=== PATIENT | female | born 1930 | race Caucasian/White ===

== ENCOUNTER 2017-12-22 12:48 | Observation (INO) | payer MEDICARE, OTHER ==
[2017-12-22 12:48] VITALS: BMI 25.7
[2017-12-22] MEDS ORDERED: Sodium Chloride 0.9% 1,000 ML IV STA (13:11)
--- NOTE | 2017-12-22 13:17 | ED PDOC ---
Syncope/Near Syncope/Dizziness Time Seen by Provider: 12/22/17 12:55 Chief Complaint (Nursing): Syncope Chief Complaint (Provider): Syncope History Per: Patient History/Exam Limitations: no limitations Onset/Duration Of Symptoms: Days (today) Current Symptoms Are (Timing): Gone Now Additional Complaint(s): Pt. was doing well today and went to [employer]. There she was feeling hot (had a jacket and multiple layers on) and then had a syncope episode. Did not respond for [address] Fitzgerald (pt. nephew). Pt. then woke up and felt fine. At no time did she have chest pain, dyspnea, weakness, headaches, dizziness, chest pain, abd pain, nausea, vomit, numbness, tingles. No shaking observed. Pt. currently back to baseline and feels fine with no symptoms. Had breakfast today. NIHSS Stroke Scale - Date/Time Evaluation Performed Date Performed: 12/22/17 Time Performed: 13:13 When Was NIHSS Performed: Baseline - How Severe is the Stroke Level of Consciousness: 0=Alert LOC to Questions: 0=Both comments correct LOC to commands: 0=Obeys both correctly Best Gaze: 0=Normal Visual: 0=No visual loss Facial: 0=Normal Motor Arm - Left: 0=No drift Motor Arm - Right: 0=No drift Motor Leg - Left: 0=No drift Motor Leg - Right: 0=No drift Limb Ataxia: 0=Absent Sensory: 0=Normal Best Language: 0=No aphasia Dysarthia: 0=Normal articulation Extinction & Inattention (Neglect): 0=Normal, no object Score: 0 Past Medical History Reviewed: Historical Data, Nursing Documentation, Vital Signs Vital Signs: Last Vital Signs Temp 97.1 F L 12/22/17 12:49 Pulse 69 12/22/17 12:49 Resp 21 12/22/17 12:49 BP 137/55 L 12/22/17 12:49 Pulse Ox 100 12/22/17 12:49 - Medical History PMH: Cardia Arrhythmia, HTN, Hypercholesterolemia, Hyperlipidemia, Kidney Stones , Osteoporosis Denies: CHF, Chronic Kidney Disease - Surgical History Surgical History: Pacemaker - Family History Family History: States: Unknown Family Hx - Living Arrangements Living Arrangements: With Family - Social History Current smoker - smoking cessation education provided: No Alcohol: None Drugs: Denies - Home Medications Home Medications: Ambulatory Orders Medication Instructions Recorded Aspirin [Aspirin EC] 81 mg PO DAILY #0 tablet. 02/14/16 Isosorbide Mononitrate [Imdur] 60 mg PO DAILY #0 tab 02/14/16 Losartan [Cozaar] 100 mg PO DAILY #0 tab 02/14/16 Metoprolol Tartrate [Lopressor] 25 mg PO DAILY #0 tab 02/14/16 Ergocalciferol (Vitamin D2) 50,000 unit PO FR 03/09/16 [Vitamin D2] Lansoprazole [Prevacid] 30 mg PO DAILY PRN 03/09/16 Meclizine [Antivert] 12.5 mg PO DAILY PRN 03/09/16 Simvastatin 20 mg PO HS 03/09/16 - Allergies Allergies/Adverse Reactions: Allergies Allergy/AdvReac Type Severity Reaction Status Date / Time Sulfa (Sulfonamide Allergy RASH Verified 03/09/16 11:42 Antibiotics) Review of Systems ROS Statement: Except As Marked, All Systems Reviewed And Found Negative Neurological: Positive for: Other (syncope) Physical Exam - Reviewed Nursing Documentation Reviewed: Yes Vital Signs Reviewed: Yes - Physical Exam Appears: Positive for: Well, Non-toxic, No Acute Distress Head Exam: Positive for: ATRAUMATIC, NORMAL INSPECTION, NORMOCEPHALIC Skin: Positive for: Normal Color, Warm, DRY Eye Exam: Positive for: EOMI, Normal appearance, PERRL ENT: Positive for: Normal ENT Inspection Neck: Positive for: Normal, Painless ROM Cardiovascular/Chest: Positive for: Regular Rate, Rhythm Respiratory: Positive for: CNT, Normal Breath Sounds Gastrointestinal/Abdominal: Positive for: Normal Exam, Soft. Negative for: Tenderness Back: Positive for: Normal Inspection. Negative for: L CVA Tenderness, R CVA Tenderness Extremity: Positive for: Normal ROM. Negative for: Tenderness, Pedal Edema Neurologic/Psych: Positive for: Alert, monorail operator II-XII, Oriented. Negative for: Motor/Sensory Deficits, Aphasia, Facial Droop - Laboratory Results Result Diagrams: 12/22/17 13:40 12/22/17 13:40 Interpretation Of Abn Labs: 32/1.6 - ECG ECG: Positive for: Interpreted By Me, Viewed By Me ECG Rhythm: Positive for: Venticular Paced (on demand) O2 Sat by Pulse Oximetry: 100 Pulse Ox Interpretation: Normal - Radiology X-Ray: Interpreted by Me, Viewed By Me X-Ray Interpretation: No Acute Disease - CT Scan/US ct Other Rad Studies (CT/US): Read By Radiologist Other Rad Interpretation: no acute - Progress ED Course And Treament: 1542: Stable. Has no complaints currently. Considering pt. age, risk factors , and bun/cr findings will need obs. 1607: Spoke with Dr. Davila. Will admit tele. Disposition - Clinical Impression Clinical Impression: Syncope, Dehydration, Renal insufficiency - Patient ED Disposition Is Patient to be Admitted: Yes Counseled Patient/Family Regarding: Studies Performed, Diagnosis - Disposition Disposition Time: 16:11 Condition: FAIR - Pt Status Changed To: Hospital Disposition Of: Observation - POA Present On Arrival: None rTPA Inclusion/Exclusion - Refusal of Treatment Patient Refused Treatment: No - Inclusion Criteria for Altepase Patient is 18 years or Older: Yes Clinical DX Ischemic Stroke Cause Neurological Deficit: No Time of Onset Established Less Than 270 Mins Before TX Begin: No Risk/Benefit Discussed With Patient/Family Member Present: No
[2017-12-22 13:49] LABS: BASO # 0.1 K/uL (0.0-0.2); BASO % 0.6 % (0.0-2.0); EOS # 0.1 K/uL (0.0-0.7); EOS % 1.1 % (0.0-4.0); HEMOGLOBIN 13.2 g/dL (12.0-16.0); LYMPH # 1.7 K/uL (1.0-4.3); LYMPH % 18.4 % (20.0-40.0); MEAN CELL VOLUME 87.1 fl (81.0-99.0); MEAN CORPUSCULAR HEMOGLOBIN 28.7 pg (27.0-31.0); MEAN PLATELET VOLUME 8.6 fl (7.2-11.7); MONO # 0.7 K/uL (0.0-0.8); MONO % 7.2 % (0.0-10.0); NEUT # 6.9 K/uL (1.8-7.0); NEUT % 72.7 % (50.0-75.0); NRBC % 0.1 % (0.0-0.0); RBC 4.6 Mil/uL (3.80-5.20); WHITE BLOOD COUNT 9.5 K/uL (4.8-10.8)
[2017-12-22 14:02] LABS: ALB/GLOB RATIO 1.2 (1.0-2.1); ALBUMIN 4.1 g/dL (3.5-5.0); ALT/SGPT 44 U/L (9-52); AST/SGOT 30 U/L (14-36); BLOOD UREA NITROGEN 32 mg/dl (7-17); CALCIUM 9.8 mg/dL (8.4-10.2); GFR AFRICAN-AMERICAN 37; GFR NON-AFRICAN AMERICAN 30
[2017-12-22 14:06] LABS: INR 1.1 (0.9-1.2); PARTIAL THROMBOPLASTIN TIME 21.2 Seconds (25.6-37.1); PROTHROMBIN TIME 11.7 Seconds (9.8-13.1)
--- NOTE | 2017-12-22 14:35 | CT ---
PROCEDURE: CT HEAD WITHOUT CONTRAST. HISTORY: headache COMPARISON: Noncontrast head CT 03/09/2016. TECHNIQUE: Axial computed tomography images were obtained through the head/brain without intravenous contrast. Radiation dose: Total exam DLP = 670.29 mGy-cm. This CT exam was performed using one or more of the following dose reduction techniques: Automated exposure control, adjustment of the mA and/or kV according to patient size, and/or use of iterative reconstruction technique. FINDINGS: HEMORRHAGE: No intracranial hemorrhage. BRAIN: Good corticomedullary differentiation is seen. Proportional, diffuse expansion of the ventriculosulcal and cisternal spaces is appreciated with white matter lucency compatible with diffuse cerebral atrophy and chronic microangiopathy. No suspicious extra-axial fluid collection is identified and the midline brain anatomy appears grossly nonfocal as imaged. There is no mass effect throughout. VENTRICLES: Unremarkable. No hydrocephalus. CALVARIUM: Unremarkable. PARANASAL SINUSES: Unremarkable as visualized. No significant inflammatory changes. MASTOID AIR CELLS: Unremarkable as visualized. No inflammatory changes. OTHER FINDINGS: None. IMPRESSION: Stable age related neuro degenerative changes, age appropriate. No suspicious interval findings including hemorrhage, edema or mass effect.
--- NOTE | 2017-12-22 16:40 | CP.PCM.HP ---
History of Present Illness - History of Present Illness History of Present Illness: Chief Complaint: "passed out in mu-ism" HPI: 87 y/o lady with Hx of Sick Sinus Syndrome s/p Pacemaker, HTN, Hyperlipidemia , CKD Stage II and Alzheimer's Dementia, was brought in after a syncopal episode. The patient was sitted in [facility] when she was suddenly noticed to be unresponsive for about 2-3 minutes. She then woke up and was alert and answered all her nephews questions appropriately. No seizures, no incontinence , however she was noted to be sweating. She denies any chest pain, no SOB, no fever, no headache, no dizziness, no abdominal pain. She states that she had eaten her breakfast prior to going to [facility]. Of note was that patient was wearing a heavy winter coat to mu-ism and also had 2 winter warmers under her pants. Patient was seen by her Collection Systems Modeler - Dr Luna 1 month ago for follow up and all work ups done were fine. Lives alone , has a Home Health Aide 5x/week 4 hours per day PMD : DR Kovacs Cardio: Dr Luna Nephro: Dr Rudolph Surrogate DEcision maker - nephew Dr Ra Fitzgerald ( OB) Meds: Norvasc Namenda Aricept ASA Calcitriol Vit D Present on Admission - Present on Admission Any Indicators Present on Admission: No Review of Systems - Review of Systems All systems: reviewed and no additional remarkable complaints except - Constitutional Constitutional: absent: Chills, Fever, Headache, Lethargy, Weight Loss, Weakness - EENT Eyes: absent: Change in Vision Nose/Mouth/Throat: absent: Nasal Congestion, Nasal Discharge - Cardiovascular Cardiovascular: absent: Chest Pain, Diaphoresis, Dyspnea, Dyspnea on Exertion, Edema - Respiratory Respiratory: absent: Cough, Dyspnea, Dyspnea on Exertion - Gastrointestinal Gastrointestinal: absent: Abdominal Pain, Diarrhea, Heartburn, Vomiting - Genitourinary Genitourinary: absent: Difficulty Urinating, Dysuria, Nocturia - Menstruation Menstruation: S/P Hysterectomy - Musculoskeletal Musculoskeletal: absent: Back Pain, Muscle Weakness - Integumentary Integumentary: absent: Lesions, Skin Ulcer, Sores - Neurological Neurological: Memory Loss, Syncope. absent: Confusion, Focal Weakness, Headaches, Vertigo, Weakness - Psychiatric Psychiatric: absent: Abnormal Sleep Pattern, Anxiety, Confusion, Depression - Endocrine Endocrine: absent: Polydipsia, Polyphagia, Polyuria - Hematologic/Lymphatic Hematologic: absent: Easy Bleeding, Easy Bruising Past Patient History - Infectious Disease Hx of Infectious Diseases: None - Tetanus Immunizations Tetanus Immunization: Unknown - Past Medical History & Family History Past Medical History?: Yes Past Family History: Reviewed and not pertinent - Past Social History Smoking Status: Never Smoked Chewing Tobacco Use: No Cigar Use: No Alcohol: None Drugs: Denies Home Situation {Lives}: Alone Domestic Violence: Negative - CARDIAC Hx Cardia Arrhythmia: Yes Hx Congestive Heart Failure: No Hx Hypercholesterolemia: Yes Hx Hypertension: Yes Hx Pacemaker: Yes - PULMONARY Hx Respiratory Disorders: No - NEUROLOGICAL Hx Dementia: Yes - HEENT Hx HEENT Problems: No - RENAL Hx Chronic Kidney Disease: No Hx Kidney Stones: Yes - ENDOCRINE/METABOLIC Hx Endocrine Disorders: No - HEMATOLOGICAL/ONCOLOGICAL Hx Blood Disorders: No - INTEGUMENTARY Hx Dermatological Problems: No - MUSCULOSKELETAL/RHEUMATOLOGICAL Hx Osteoporosis: Yes - GASTROINTESTINAL Hx Gastrointestinal Disorders: No - GENITOURINARY/GYNECOLOGICAL Hx Genitourinary Disorders: No - PSYCHIATRIC Hx Psychophysiologic Disorder: No Hx Substance Use: No - SURGICAL HISTORY Hx Surgeries: Yes Hx Hysterectomy: Yes Other/Comment: Hx Hemorroidectomy. Pacemaker placement - ANESTHESIA Hx Anesthesia: Yes Hx Anesthesia Reactions: No Hx Malignant Hyperthermia: No Meds Allergies/Adverse Reactions: Allergies Allergy/AdvReac Type Severity Reaction Status Date / Time Sulfa (Sulfonamide Allergy RASH Verified 03/09/16 11:42 Antibiotics) Physical Exam - Constitutional Appears: Well - Head Exam Head Exam: ATRAUMATIC, NORMAL INSPECTION, NORMOCEPHALIC - Eye Exam Eye Exam: EOMI, Normal appearance, PERRL Pupil Exam: NORMAL ACCOMODATION - ENT Exam ENT Exam: Mucous Membranes Moist, Normal External Ear Exam - Neck Exam Neck exam: Positive for: Full Rom. Negative for: Meningismus - Respiratory Exam Respiratory Exam: NORMAL BREATHING PATTERN. absent: Respiratory Distress - Cardiovascular Exam Cardiovascular Exam: REGULAR RHYTHM, +S1, +S2 Additional comments: left chest pacemaker - GI/Abdominal Exam GI & Abdominal Exam: Normal Bowel Sounds, Soft. absent: Tenderness - Extremities Exam Extremities exam: Positive for: full ROM, normal capillary refill, pedal pulses present. Negative for: calf tenderness, pedal edema - Back Exam Back exam: FULL ROM. absent: CVA tenderness (L), CVA tenderness (R) - Neurological Exam Neurological exam: Alert, CN II-XII Intact, Oriented x3, Reflexes Normal - Psychiatric Exam Psychiatric exam: Normal Affect, Normal Mood - Skin Skin Exam: Dry, Normal Color, Warm Results - Vital Signs Recent Vital Signs: Last Vital Signs Temp 98.1 F 12/22/17 15:36 Pulse 67 12/22/17 15:36 Resp 15 12/22/17 15:36 BP 119/70 12/22/17 15:36 Pulse Ox 100 12/22/17 16:11 - Labs Result Diagrams: 12/22/17 13:40 12/22/17 13:40 Labs: Laboratory Results - last 24 hr 12/22/17 12/22/17 12/22/17 13:21 13:40 13:40 WBC 9.5 RBC 4.60 Hgb 13.2 Hct 40.0 MCV 87.1 D MCH 28.7 MCHC 33.0 RDW 14.0 Plt Count 252 MPV 8.6 Neut % (Auto) 72.7 Lymph % (Auto) 18.4 L [place] % (Auto) 7.2 Eos % (Auto) 1.1 Baso % (Auto) 0.6 Neut # (Auto) 6.9 Lymph # (Auto) 1.7 [place] # (Auto) 0.7 Eos # (Auto) 0.1 Baso # (Auto) 0.1 PT INR APTT Sodium 142 Potassium 4.3 Chloride 106 Carbon Dioxide 22 Anion Gap 18 BUN 32 H Creatinine 1.6 H Est GFR ( Amer) 37 Est GFR (Non-Af Amer) 30 POC Glucose (mg/dL) 137 H Random Glucose 135 H Calcium 9.8 Total Bilirubin 0.5 AST 30 ALT 44 Alkaline Phosphatase 52 Troponin I < 0.0120 Total Protein 7.6 Albumin 4.1 Globulin 3.5 Albumin/Globulin Ratio 1.2 12/22/17 13:40 WBC RBC Hgb Hct MCV MCH MCHC RDW Plt Count MPV Neut % (Auto) Lymph % (Auto) [place] % (Auto) Eos % (Auto) Baso % (Auto) Neut # (Auto) Lymph # (Auto) [place] # (Auto) Eos # (Auto) Baso # (Auto) PT 11.7 INR 1.1 APTT 21.2 L Sodium Potassium Chloride Carbon Dioxide Anion Gap BUN Creatinine Est GFR ( Amer) Est GFR (Non-Af Amer) POC Glucose (mg/dL) Random Glucose Calcium Total Bilirubin AST ALT Alkaline Phosphatase Troponin I Total Protein Albumin Globulin Albumin/Globulin Ratio - EKG Data EKG Interpreted by: Myself EKG shows normal: Sinus rhythm Rate: Normal - EKG Data EKG comments: Paced rhythm, PVCs - Imaging and Cardiology CT scan - head Status: Image reviewed by me, Report reviewed by me Additional comment: negative acute change Chest x-ray Status: Image reviewed by me Additional comment: negative Assessment & Plan (1) Syncope Status: Acute (2) Dehydration Status: Acute (3) Acute kidney injury superimposed on chronic kidney disease Status: Acute (4) HTN (hypertension) Status: Chronic (5) Dementia Status: Chronic (6) Pacemaker Status: Chronic (7) DVT prophylaxis Status: Acute - Assessment and Plan (Free Text) Assessment: 87 y/o lady with hx of SS s/p Pacemaker, HTN, HYperlipidenia, Dementia, CKD , was brought in after a Syncopal episode. Pt was in [facility] wearing a heavy winter coat and had layered clothing when she was suddenly observed to have passed out. She regained consciousness after 2-3 minutes and was asymptomatic. (1) Syncope Status: Acute prob sec to Dehydration or Vasovagal r/o Cardiac etiology EKG: Paced rhythm, PVCs Trop x 1 negative CXR : neg CT of head : neg Will observe pt in Telemetry Cardio - Dr Luna consulted - case discussed , pt had recent office visit 1 month ago - ( per Dr Bauman - no need to do ECHO nor Carotid Sono) Serial Troponi cont ASA (2) Dehydration Status: Acute IVF hydration , gentle (3) Acute kidney injury superimposed on chronic kidney disease stage II Status: Acute IVF hydration Pt sees Dr Rudolph as outpt (4) HTN (hypertension) Status: Chronic cont Norvasc monitor BP (5) Dementia Status: Chronic cont namenda (6) Hx of SSS s/p Pacemaker Status: Chronic (7) DVT prophylaxis Status: Acute Lovenox Decision To Admit - Pt Status Changed To: Hospital Disposition Of: Observation - . Bed Request Type: Telemetry Admitting Physician: Mary Rand
--- NOTE | 2017-12-22 16:43 | RAD ---
HISTORY: syncope COMPARISON: Chest radiographs 02/11/2016 FINDINGS: LUNGS: No active pulmonary disease. Improved inspiratory volume noted. PLEURA: No significant pleural effusion identified, no pneumothorax apparent. CARDIOVASCULAR: Normal. Permanent cardiac pacemaker again evident. OSSEOUS STRUCTURES: No significant abnormalities. VISUALIZED UPPER ABDOMEN: Normal. OTHER FINDINGS: None. IMPRESSION: No interval acute cardiopulmonary disease appreciated. Permanent pacemaker reiterated.
[2017-12-22] MEDS: Sodium Chloride 0.9% 1,000 ML IV SCH (17:03)
[2017-12-22] MEDS ORDERED: Pneumococcal 23-Valent Vaccine IM ONE (18:22)
[2017-12-23 05:44] LABS: HEMOGLOBIN 11.7 g/dL (12.0-16.0); MEAN CELL VOLUME 86.8 fl (81.0-99.0); MEAN CORPUSCULAR HEMOGLOBIN 28.7 pg (27.0-31.0); RBC 4.09 Mil/uL (3.80-5.20); WHITE BLOOD COUNT 8.9 K/uL (4.8-10.8)
[2017-12-23 05:56] LABS: BLOOD UREA NITROGEN 28 mg/dl (7-17); CALCIUM 8.9 mg/dL (8.4-10.2); GFR AFRICAN-AMERICAN 51; GFR NON-AFRICAN AMERICAN 42
[2017-12-23 06:19] LABS: T3 0.785 nmol/L (1.49-2.60)
[2017-12-23 07:58] VITALS: RESP 18
[2017-12-23 08:03] LABS: SQUAMOUS EPITHIAL < 1 /hpf (0-5); URINE BACTERIA OCC (<OCC); URINE BILIRUBIN NEGATIVE (NEGATIVE); URINE BLOOD NEGATIVE (NEGATIVE); URINE CLARITY CLOUDY (Clear); URINE COLOR YELLOW (YELLOW); URINE GLUCOSE (UA) NEG (Normal); URINE LEUKOCYTE ESTERASE LARGE Leu/uL (Negative); URINE PROTEIN NEGATIVE (NEGATIVE); URINE UROBILINOGEN 0.2-1.0 mg/dL (0.2-1.0)
--- NOTE | 2017-12-23 08:24 | CARD ---
APPROVED REPORT EKG Measurement Heart [id number] <Conclusion> Accelerated Junctional rhythm with frequent ventricular-paced complexes and premature supraventricular complexes ST & T wave abnormality, consider inferior ischemia ST & T wave abnormality, consider anterolateral ischemia Abnormal ECG
[2017-12-23] MEDS ORDERED: Enoxaparin 30 mg Syringe SC SCH (09:00)
[2017-12-23] MEDS: Sodium Chloride 0.9% 1,000 ML IV SCH (09:25)
--- NOTE | 2017-12-23 13:20 | CP.PCM.DIS ---
Provider - Provider Date of Admission: 12/22/17 16:08 Attending physician: Ryder Davila MD Primary care physician: Dr Kovacs Consults: Cardio: Dr Luna Time Spent in preparation of Discharge (in minutes): 35 Diagnosis - Discharge Diagnosis (1) Syncope Status: Acute (2) Dehydration Status: Acute (3) Acute kidney injury superimposed on chronic kidney disease Status: Acute (4) HTN (hypertension) Status: Chronic (5) Dementia Status: Chronic (6) Pacemaker Status: Chronic (7) DVT prophylaxis Status: Acute (8) UTI (urinary tract infection) Status: Acute Hospital Course - Lab Results Lab Results: Most Recent Lab Values WBC 8.9 K/uL (4.8-10.8) 12/23/17 04:20 RBC 4.09 Mil/uL (3.80-5.20) 12/23/17 04:20 Hgb 11.7 g/dL (12.0-16.0) L 12/23/17 04:20 Hct 35.5 % (34.0-47.0) 12/23/17 04:20 MCV 86.8 fl (81.0-99.0) 12/23/17 04:20 MCH 28.7 pg (27.0-31.0) 12/23/17 04:20 MCHC 33.0 g/dL (33.0-37.0) 12/23/17 04:20 RDW 14.0 % (11.5-14.5) 12/23/17 04:20 Plt Count 207 K/uL (130-400) 12/23/17 04:20 MPV 8.6 fl (7.2-11.7) 12/22/17 13:40 Neut % (Auto) 72.7 % (50.0-75.0) 12/22/17 13:40 Lymph % (Auto) 18.4 % (20.0-40.0) L 12/22/17 13:40 [place] % (Auto) 7.2 % (0.0-10.0) 12/22/17 13:40 Eos % (Auto) 1.1 % (0.0-4.0) 12/22/17 13:40 Baso % (Auto) 0.6 % (0.0-2.0) 12/22/17 13:40 Neut # (Auto) 6.9 K/uL (1.8-7.0) 12/22/17 13:40 Lymph # (Auto) 1.7 K/uL (1.0-4.3) 12/22/17 13:40 [place] # (Auto) 0.7 K/uL (0.0-0.8) 12/22/17 13:40 Eos # (Auto) 0.1 K/uL (0.0-0.7) 12/22/17 13:40 Baso # (Auto) 0.1 K/uL (0.0-0.2) 12/22/17 13:40 PT 11.7 Seconds (9.8-13.1) 12/22/17 13:40 INR 1.1 (0.9-1.2) 12/22/17 13:40 APTT 21.2 Seconds (25.6-37.1) L 12/22/17 13:40 Sodium 141 mmol/l (132-148) 12/23/17 04:20 Potassium 4.1 MMOL/L (3.6-5.0) 12/23/17 04:20 Chloride 109 mmol/L (98-107) H 12/23/17 04:20 Carbon Dioxide 25 mmol/L (22-30) 12/23/17 04:20 Anion Gap 11 (10-20) 12/23/17 04:20 BUN 28 mg/dl (7-17) H 12/23/17 04:20 Creatinine 1.2 mg/dl (0.7-1.2) 12/23/17 04:20 Est GFR ( Amer) 51 12/23/17 04:20 Est GFR (Non-Af Amer) 42 12/23/17 04:20 POC Glucose (mg/dL) 137 mg/dL (65-110) H 12/22/17 13:21 Random Glucose 95 mg/dL (65-105) 12/23/17 04:20 Calcium 8.9 mg/dL (8.4-10.2) 12/23/17 04:20 Total Bilirubin 0.5 mg/dl (0.2-1.3) 12/22/17 13:40 AST 30 U/L (14-36) 12/22/17 13:40 ALT 44 U/L (9-52) 12/22/17 13:40 Alkaline Phosphatase 52 U/L (38-126) 12/22/17 13:40 Troponin I < 0.0120 ng/mL (0.00-0.120) 12/23/17 04:20 Total Protein 7.6 G/DL (6.3-8.2) 12/22/17 13:40 Albumin 4.1 g/dL (3.5-5.0) 12/22/17 13:40 Globulin 3.5 gm/dL (2.2-3.9) 12/22/17 13:40 Albumin/Globulin Ratio 1.2 (1.0-2.1) 12/22/17 13:40 Vitamin B12 619 pg/mL (239-931) 12/23/17 04:20 Thyroxine (T4) 5.40 ug/dl (5.5-11.0) L 12/23/17 04:20 Total T3 0.785 nmol/L (1.49-2.60) L 12/23/17 04:20 TSH 3rd Generation 1.26 mIU/ML (0.46-4.68) 12/23/17 04:20 Urine Color Yellow (YELLOW) 12/23/17 07:46 Urine Clarity Cloudy (Clear) 12/23/17 07:46 Urine pH 6.0 (5.0-8.0) 12/23/17 07:46 Ur Specific [place] 1.015 (1.003-1.030) 12/23/17 07:46 Urine Protein Negative mg/dL (NEGATIVE) 12/23/17 07:46 Urine Glucose (UA) Neg mg/dL (Normal) 12/23/17 07:46 Urine Ketones Negative mg/dL (NEGATIVE) 12/23/17 07:46 Urine Blood Negative (NEGATIVE) 12/23/17 07:46 Urine Nitrate Negative (NEGATIVE) 12/23/17 07:46 Urine Bilirubin Negative (NEGATIVE) 12/23/17 07:46 Urine Urobilinogen 0.2-1.0 mg/dL (0.2-1.0) 12/23/17 07:46 Ur Leukocyte Esterase Large Mónica/uL (Negative) 12/23/17 07:46 Urine Microscopic WBC 182 /hpf (0-5) H 12/23/17 07:46 Ur Squamous Epith Cells < 1 /hpf (0-5) 12/23/17 07:46 Urine Bacteria Occ (<OCC) H 12/23/17 07:46 - Hospital Course Hospital Course: 87 y/o lady with hx of SSS s/p Pacemaker, HTN, HYperlipidenia, Dementia, CKD , was brought in after a Syncopal episode. Pt was in [facility] wearing a heavy winter coat and had layered clothing when she was suddenly observed to have passed out. She regained consciousness after 2-3 minutes and was asymptomatic. (1) Syncope Status: Acute prob sec to Dehydration or Vasovagal observed pt in Telemetry- no abn rhythm EKG: Paced rhythm, PVCs serial EKG : no change Trop x 3 negative CXR : neg CT of head : neg Cardio - Dr Luna consulted - case discussed , pt had recent office visit 1 month ago - ( per Dr Luna - no need to do ECHO nor Carotid Sono)- cleared pt for discharge- ff up serena cont ASA (2) Dehydration Status: Acute IVF hydration , gentle (3) Acute kidney injury superimposed on chronic kidney disease stage II Status: Acute improved Crea now 1.1 IVF hydration Pt sees Dr Rudolph as outpt (4) HTN (hypertension) Status: Chronic cont Norvasc monitor BP (5) Dementia Status: Chronic cont namenda (6) Hx of SSS s/p Pacemaker Status: Chronic 7. UTI Urinalysis showed Leukoesterase and WBC Received IV ceftriaxone Urine c/s : pending- ff up result with PMD will d/c pt on renal dose of Cipro (8) DVT prophylaxis Status: Acute Lovenox Discharge Exam - Head Exam Head Exam: ATRAUMATIC, NORMAL INSPECTION, NORMOCEPHALIC - Eye Exam Eye Exam: EOMI, Normal appearance Pupil Exam: NORMAL ACCOMODATION - ENT Exam ENT Exam: Mucous Membranes Moist, Normal External Ear Exam - Neck Exam Neck exam: Full Rom - Respiratory Exam Respiratory Exam: NORMAL BREATHING PATTERN. absent: Respiratory Distress - Cardiovascular Exam Cardiovascular Exam: REGULAR RHYTHM, +S1, +S2 - GI/Abdominal Exam GI & Abdominal Exam: Normal Bowel Sounds, Soft. absent: Tenderness - Extremities Exam Extremities exam: full ROM, normal capillary refill, pedal pulses present - Back Exam Back exam: FULL ROM. absent: CVA tenderness (L), CVA tenderness (R) - Neurological Exam Neurological exam: Alert, CN II-XII Intact, Oriented x3, Reflexes Normal - Psychiatric Exam Psychiatric exam: Normal Affect, Normal Mood - Skin Skin Exam: Dry, Normal Color, Warm Discharge Plan - Discharge Medications Prescriptions: Ciprofloxacin HCl [Cipro] 250 mg PO BID #10 tablet - Follow Up Plan Condition: GOOD Disposition: HOME/ ROUTINE Instructions: Dehydration, Adult (DC), Urinary Tract Infection, Adult (DC), Syncope (Fainting) (DC) Additional Instructions: ff up with Dr Jeremy lyons appt with Dr Fermín lyons ff up Urine c/s result with PMD Referrals: Floridalma Kovacs MD [Family Provider] - Javier Luna MD [Staff Provider] -
[2017-12-23 16:15] VITALS: BP 113/55; PULSE 68; TEMP 98.2; O2SAT 98
--- NOTE | 2017-12-24 11:08 | CARD ---
APPROVED REPORT EKG Measurement Heart [id number] <Conclusion> Ventricular-paced rhythm Abnormal ECG
== END 2017-12-23 17:20 | disposition home or self-care (01) ==
LOC: H.ER 12:48 → H.ERHOLD 16:08 → H.TEL 17:32
PROVIDERS: ADMIT Hospitalist; ATTEND Hospitalist
DX: E86.0 Dehydration (principal); R55 Syncope and collapse; F02.80 Dementia in other diseases classified elsewhere, unspecified severity, without behavioral disturbance, psychotic disturbance, mood disturbance, and anxiety; G30.9 Alzheimer's disease, unspecified; I12.9 Hypertensive chronic kidney disease with stage 1 through stage 4 chronic kidney disease, or unspecified chronic kidney disease; I49.3 Ventricular premature depolarization; M81.0 Age-related osteoporosis without current pathological fracture; N17.9 Acute kidney failure, unspecified; N18.2 Chronic kidney disease, stage 2 (mild); N39.0 Urinary tract infection, site not specified; Z79.82 Long term (current) use of aspirin; Z87.442 Personal history of urinary calculi; Z90.710 Acquired absence of both cervix and uterus; Z95.0 Presence of cardiac pacemaker; Z79.899 Other long term (current) drug therapy; E78.00 Pure hypercholesterolemia, unspecified; E78.5 Hyperlipidemia, unspecified; Z23 Encounter for immunization
CPT/HCPCS: 36415; 70450; 71045; 80048; 80053; 81003; 81025; 82607; 82948; 84436; 84443; 84480; 84484; 85025; 85027; 85610; 85730; 87086; 90732; 93005; 96365; 96372; 99285; G0009; G0378; J0696; J1650; J7030

== ENCOUNTER 2018-10-06 16:41 | Observation (INO) | payer MEDICARE, OTHER ==
[2018-10-06 16:41] VITALS: BMI 25.7
[2018-10-06 17:54] LABS: ALB/GLOB RATIO 1.3 (1.0-2.1); ALT/SGPT 28 U/L (9-52); AST/SGOT 24 U/L (14-36); BLOOD UREA NITROGEN 24 mg/dl (7-17); CALCIUM 9.1 mg/dL (8.4-10.2); GFR NON-AFRICAN AMERICAN 47
--- NOTE | 2018-10-06 18:11 | RAD ---
Date of service: 10/06/2018 HISTORY: Syncope COMPARISON: 12/22/2017 FINDINGS: LUNGS: No active pulmonary disease. PLEURA: No significant pleural effusion identified, no pneumothorax apparent. CARDIOVASCULAR: No atherosclerotic calcification present No radiographic findings to suggest acute or significant cardiovascular disease. Position/ configuration of pacemaker device: Satisfactory. OSSEOUS STRUCTURES: No significant abnormalities. VISUALIZED UPPER ABDOMEN: Normal. OTHER FINDINGS: None. IMPRESSION: No active disease. No significant interval change compared to the prior examination(s).
[2018-10-06 18:26] LABS: BASO # 0.1 K/uL (0.0-0.2); BASO % 0.8 % (0.0-2.0); EOS # 0.1 K/uL (0.0-0.7); EOS % 0.9 % (0.0-4.0); HEMOGLOBIN 13.1 g/dL (12.0-16.0); LYMPH % 7.4 % (20.0-40.0); MEAN CELL VOLUME 88.5 fl (81.0-99.0); MEAN CORPUSCULAR HEMOGLOBIN 29.1 pg (27.0-31.0); MEAN CORPUSCULAR HGB CONC 32.9 g/dL (33.0-37.0); MEAN PLATELET VOLUME 8.7 fl (7.2-11.7); MONO # 0.9 K/uL (0.0-0.8); MONO % 6.8 % (0.0-10.0); NEUT # 11.1 K/uL (1.8-7.0); NEUT % 84.1 % (50.0-75.0); PLATELET COUNT 212 K/uL (130-400); RBC 4.51 Mil/uL (3.80-5.20); RED CELL DISTRIBUTION WIDTH 13.7 % (11.5-14.5); WHITE BLOOD COUNT 13.2 K/uL (4.8-10.8)
--- NOTE | 2018-10-06 18:26 | CT ---
Date of service: 10/06/2018 PROCEDURE: CT HEAD WITHOUT CONTRAST. HISTORY: Syncope COMPARISON: Noncontrast head CT performed 12/22/17 TECHNIQUE: Axial computed tomography images were obtained through the head/brain without intravenous contrast. Radiation dose: Total exam DLP = 690.05 mGy-cm. This CT exam was performed using one or more of the following dose reduction techniques: Automated exposure control, adjustment of the mA and/or kV according to patient size, and/or use of iterative reconstruction technique. FINDINGS: HEMORRHAGE: No intracranial hemorrhage. BRAIN: Diffuse atrophy with prominence of the ventricles and sulci noted. No mass effect or edema. Intracranial atherosclerosis. Scattered periventricular and subcortical white matter hypodensities, which are nonspecific, but often seen with chronic microvascular ischemic disease. Please note that MRI with diffusion imaging is more sensitive in the detection of acute ischemic event. VENTRICLES: No hydrocephalus. CALVARIUM: Unremarkable. PARANASAL SINUSES: Unremarkable as visualized. No significant inflammatory changes. MASTOID AIR CELLS: Unremarkable as visualized. No inflammatory changes. OTHER FINDINGS: Partial opacification of the external auditory canals, likely cerumen. IMPRESSION: Generalized volume loss. Nonspecific white matter changes.
--- NOTE | 2018-10-06 18:35 | ED PDOC ---
Syncope/Near Syncope/Dizziness Time Seen by Provider: 10/06/18 16:56 Chief Complaint (Nursing): Syncope Chief Complaint (Provider): Syncope History Per: Patient, Director Of Corporate Marketing (Director Of Corporate Marketing [phone]) History/Exam Limitations: no limitations Onset/Duration Of Symptoms: Days (today) Additional Complaint(s): 88 year old female with a history of dementia was bought in by EMS to be evaluated for a syncopal episode onset today. Patients family member states that her syncopal episode lasted 15 minutes. Patient states she has been feeling bad for the last couple of days. Patient reports that she has had headaches and dizziness. Patient denies chest pains and shortness of breath. Director Of Corporate Marketing [id number] was used. PMD: Floridalma Kovacs MD Past Medical History Reviewed: Historical Data Vital Signs: Last Vital Signs Temp 97.9 F 10/06/18 16:44 Pulse 76 10/06/18 16:44 Resp 16 10/06/18 16:44 BP 143/75 10/06/18 16:44 Pulse Ox 97 10/06/18 16:44 BENTLEY Report Viewed: Yes - Medical History PMH: Cardia Arrhythmia, Dementia, HTN, Hypercholesterolemia, Hyperlipidemia, Kidney Stones, Osteoporosis, Chronic Kidney Disease Denies: CHF, HIV - Surgical History Surgical History: Pacemaker - Family History Family History: States: No Known Family Hx - Home Medications Home Medications: Ambulatory Orders Medication Instructions Recorded Aspirin [Ecotrin] 81 mg PO DAILY tabec 12/23/17 Calcitriol [Rocaltrol] 0.25 mcg PO MWF 10/06/18 Donepezil [Aricept] 10 mg PO HS 10/06/18 Famotidine [Pepcid] 40 mg PO DAILY 10/06/18 Memantine HCl [Namenda Xr] 28 mg PO HS 10/06/18 Paricalcitol [Zemplar] 2 mcg PO SUTUTHSA 10/06/18 Sevelamer Carbonate [Renvela] 800 mg PO BID 10/06/18 Simvastatin [Zocor] 20 mg PO HS 10/06/18 Metoprolol Succinate XL [Toprol XL] 25 mg PO HS 30 Days #30 tab 10/07/18 - Allergies Allergies/Adverse Reactions: Allergies Allergy/AdvReac Type Severity Reaction Status Date / Time Sulfa (Sulfonamide Allergy RASH Verified 03/09/16 11:42 Antibiotics) Review of Systems ROS Statement: Except As Marked, All Systems Reviewed And Found Negative Cardiovascular: Negative for: Chest Pain Respiratory: Negative for: Shortness of Breath Neurological: Positive for: Headache, Dizziness Physical Exam - Reviewed Nursing Documentation Reviewed: Yes Vital Signs Reviewed: Yes - Physical Exam Appears: Positive for: Well Head Exam: Positive for: ATRAUMATIC, NORMOCEPHALIC Skin: Positive for: Normal Color, Warm, Dry Eye Exam: Positive for: Normal appearance, EOMI, PERRL ENT: Positive for: Normal ENT Inspection Neck: Positive for: Normal, Painless ROM, Supple Cardiovascular/Chest: Positive for: Regular Rate, Rhythm. Negative for: Murmur Respiratory: Positive for: Normal Breath Sounds. Negative for: Respiratory Distress Gastrointestinal/Abdominal: Positive for: Normal Exam, Soft. Negative for: Tenderness, Other ( CVA tenderness) Back: Positive for: Normal Inspection. Negative for: L CVA Tenderness, R CVA Tenderness, Other (midline tenderness) Extremity: Positive for: Normal ROM (Upper and Lower). Negative for: Pedal Edema, Deformity Neurological/Psych: Positive for: Awake, Alert, Oriented (X2). Negative for: Motor/Sensory Deficits - Laboratory Results Result Diagrams: 10/07/18 04:40 10/07/18 01:55 Lab Results: Troponin I < 0.0120 ng/mL (0.00-0.120) 10/06/18 17:40 Total Bilirubin 0.7 mg/dl (0.2-1.3) 10/06/18 17:40 AST 24 U/L (14-36) 10/06/18 17:40 ALT 28 U/L (9-52) 10/06/18 17:40 Alkaline Phosphatase 64 U/L (38-126) 10/06/18 17:40 Total Protein 7.2 G/DL (6.3-8.2) 10/06/18 17:40 Albumin 4.0 g/dL (3.5-5.0) 10/06/18 17:40 Globulin 3.2 gm/dL (2.2-3.9) 10/06/18 17:40 Albumin/Globulin Ratio 1.3 (1.0-2.1) 10/06/18 17:40 - ECG O2 Sat by Pulse Oximetry: 97 (RA) Pulse Ox Interpretation: Normal Medical Decision Making Medical Decision Making: Time: 16:56 Initial Impression: Syncopal Episode Plan: -Head CT w/o contrast -EKG -Complete metabolic panel -Magnesium -Phosphorous -Troponin -ED urine dipstick -CBC with differentials -Partial thromboplastin time -Prothrombin Time -Chest portable XRAY -Glucose, Blood, POC -Urinalysis -Re-evaluate 19:00 Patient care endorsed to Dr. Funk pending labs and reevaluation. Scribe Attestation: Documented by Carmencita Sotelo, acting as a scribe for Rowena Abad MD Provider Scribe Attestation: All medical record entries made by the Scribe were at my direction and personally dictated by me. I have reviewed the chart and agree that the record accurately reflects my personal performance of the history, physical exam, medical decision making, and the department course for this patient. I have also personally directed, reviewed, and agree with the discharge instructions and disposition Disposition - Clinical Impression Clinical Impression: Syncope - Disposition Disposition Time: 19:00 Condition: STABLE Patient Signed Over To: Enrique Funk
[2018-10-06 18:40] LABS: ALB/GLOB RATIO 1.3 (1.0-2.1); ALBUMIN 3.8 g/dL (3.5-5.0); ALT/SGPT 28 U/L (9-52); AST/SGOT 27 U/L (14-36); BLOOD UREA NITROGEN 25 mg/dl (7-17); GFR NON-AFRICAN AMERICAN 52
--- NOTE | 2018-10-06 20:04 | CP.PCM.HP ---
<Chioma Soria - Last Filed: 10/06/18 20:45> History of Present Illness - History of Present Illness History of Present Illness: This is 88 y/o F with PMH of Sick Sinus Syndrome s/p Pacemaker, HTN, Hyperlipidemia , CKD Stage II, demetia and Alzheimer's Dementia admitted to [facility] for evaluation and treatment of Syncopal episode/dizziness. Patient is a poor historian, no family present during interview. Patient reports one day hx of not feeling well, since morning she is feeling dizzy and headache. As per ER "Patients family member states that her syncopal episode lasted 15 minutes ". Patient denies such syncopal episode, denies any LOC, head trauma, chest pain, SOB, blurred vision, Seizures, abdominal pain, dysuria or weakness/numbness/tingling. [facility] [id number] PMD : DR Kovacs Cardio: Dr Jeremy Malone: Dr Rudolph PMH: Sick Sinus Syndrome s/p Pacemaker, HTN, Hyperlipidemia , CKD Stage II, demetia and Alzheimer's Dementia PSH: S/p pacemaker, Hystrectomy Meds: As per EMR ALlg: Sulfa FH: Denies SH: Denies any alcohol/smmoking or drug use Surrogate DEcision maker - nephew Dr Ra Fitzgerald ( OB Attending) ROS as per HPI ER Course: 97.9/76/16/ 143/75 and Spo2 97 CBC: Signifi wbc 13.2 CMP: BUN [address] head: No acute findings CXR: no acute disease EKG: Not reviewed Present on Admission - Present on Admission Any Indicators Present on Admission: No Review of Systems - Constitutional Constitutional: absent: Daytime Sleepiness, Excessive Sweating - EENT Eyes: absent: Blurred Vision Ears: absent: Decreased Hearing, Ear Discharge Nose/Mouth/Throat: absent: Nasal Congestion, Nasal Discharge - Breasts Breasts: absent: Skin Changes - Cardiovascular Cardiovascular: absent: Chest Pain - Respiratory Respiratory: absent: Cough, Dyspnea, Hemoptysis, Dyspnea on Exertion - Gastrointestinal Gastrointestinal: Nausea. absent: Abdominal Pain, Vomiting - Genitourinary Genitourinary: absent: Change in Urinary Stream - Musculoskeletal Musculoskeletal: absent: Back Pain, Muscle Weakness, Stiffness, Tingling - Integumentary Integumentary: absent: Bleeding Lesions, Rash - Neurological Neurological: Dizziness. absent: Abnormal Gait, Abnormal Hearing, Numbness, Focal Weakness, Lack of Coordination, Sensory Deficit, Syncope, Tingling, Tremor, Vertigo, Weakness, Other Visual Disturbances - Psychiatric Psychiatric: absent: Anxiety, Depression - Hematologic/Lymphatic Hematologic: absent: Easy Bleeding Past Patient History - Infectious Disease Hx of Infectious Diseases: None - Tetanus Immunizations Tetanus Immunization: Unknown - Past Medical History & Family History Past Medical History?: Yes - Past Social History Smoking Status: Never Smoked - CARDIAC Hx Cardia Arrhythmia: Yes Hx Congestive Heart Failure: No Hx Hypercholesterolemia: Yes Hx Hypertension: Yes Hx Pacemaker: Yes - PULMONARY Hx Respiratory Disorders: No - NEUROLOGICAL Hx Dementia: Yes - HEENT Hx HEENT Problems: No - RENAL Hx Chronic Kidney Disease: Yes Hx Kidney Stones: Yes - ENDOCRINE/METABOLIC Hx Endocrine Disorders: No - HEMATOLOGICAL/ONCOLOGICAL Hx Human Immunodeficiency Virus (HIV): No - INTEGUMENTARY Hx Dermatological Problems: No - MUSCULOSKELETAL/RHEUMATOLOGICAL Hx Osteoporosis: Yes - GASTROINTESTINAL Hx Gastrointestinal Disorders: No - GENITOURINARY/GYNECOLOGICAL Hx Genitourinary Disorders: No - PSYCHIATRIC Hx Psychophysiologic Disorder: No Hx Substance Use: No - SURGICAL HISTORY Hx Surgeries: Yes Hx Hysterectomy: Yes Other/Comment: Hx Hemorroidectomy. Pacemaker placement - ANESTHESIA Hx Anesthesia: Yes Hx Anesthesia Reactions: No Hx Malignant Hyperthermia: No Meds Allergies/Adverse Reactions: Allergies Allergy/AdvReac Type Severity Reaction Status Date / Time Sulfa (Sulfonamide Allergy RASH Verified 03/09/16 11:42 Antibiotics) Physical Exam - Constitutional Appears: No Acute Distress - Head Exam Head Exam: ATRAUMATIC, NORMAL INSPECTION, NORMOCEPHALIC - Eye Exam Eye Exam: EOMI, Normal appearance, PERRL Pupil Exam: NORMAL ACCOMODATION, PERRL - ENT Exam ENT Exam: Mucous Membranes Moist - Neck Exam Neck exam: Positive for: Normal Inspection - Respiratory Exam Respiratory Exam: Clear to Auscultation Bilateral, NORMAL BREATHING PATTERN. absent: Rhonchi, Wheezes, Respiratory Distress - Cardiovascular Exam Cardiovascular Exam: REGULAR RHYTHM, +S1, +S2 - GI/Abdominal Exam GI & Abdominal Exam: Normal Bowel Sounds, Soft. absent: Tenderness - Extremities Exam Extremities exam: Positive for: normal inspection. Negative for: tenderness - Back Exam Back exam: NORMAL INSPECTION. absent: CVA tenderness (L), CVA tenderness (R) - Neurological Exam Neurological exam: Alert, CN II-XII Intact, Oriented x3 - Psychiatric Exam Psychiatric exam: Normal Affect - Skin Skin Exam: Normal Color Results - Vital Signs Recent Vital Signs: Last Vital Signs Temp 98 F 10/06/18 19:20 Pulse 56 L 10/06/18 19:20 Resp 20 10/06/18 19:20 BP 113/43 L 10/06/18 19:20 Pulse Ox 95 10/06/18 19:20 - Labs Result Diagrams: 10/06/18 18:20 10/06/18 18:20 Labs: Laboratory Results - last 24 hr 10/06/18 10/06/18 10/06/18 16:54 17:40 18:20 WBC 13.2 H RBC 4.51 Hgb 13.1 Hct 39.9 MCV 88.5 MCH 29.1 MCHC 32.9 L RDW 13.7 Plt Count 212 MPV 8.7 Neut % (Auto) 84.1 H Lymph % (Auto) 7.4 L [place] % (Auto) 6.8 Eos % (Auto) 0.9 Baso % (Auto) 0.8 Neut # (Auto) 11.1 H Lymph # (Auto) 1.0 [place] # (Auto) 0.9 H Eos # (Auto) 0.1 Baso # (Auto) 0.1 Sodium 139 Potassium 3.8 Chloride 105 Carbon Dioxide 23 Anion Gap 15 BUN 24 H Creatinine 1.1 Est GFR ( Amer) 57 Est GFR (Non-Af Amer) 47 POC Glucose (mg/dL) 129 H Random Glucose 142 H Calcium 9.1 Total Bilirubin 0.7 AST 24 ALT 28 Alkaline Phosphatase 64 Troponin I < 0.0120 Total Protein 7.2 Albumin 4.0 Globulin 3.2 Albumin/Globulin Ratio 1.3 10/06/18 18:20 WBC RBC Hgb Hct MCV MCH MCHC RDW Plt Count MPV Neut % (Auto) Lymph % (Auto) [place] % (Auto) Eos % (Auto) Baso % (Auto) Neut # (Auto) Lymph # (Auto) [place] # (Auto) Eos # (Auto) Baso # (Auto) Sodium 139 Potassium 4.1 Chloride 104 Carbon Dioxide 26 Anion Gap 13 BUN 25 H Creatinine 1.0 Est GFR ( Amer) > 60 Est GFR (Non-Af Amer) 52 POC Glucose (mg/dL) Random Glucose 151 H Calcium 9.0 Total Bilirubin 0.6 AST 27 ALT 28 Alkaline Phosphatase 64 Troponin I < 0.0120 Total Protein 6.9 Albumin 3.8 Globulin 3.0 Albumin/Globulin Ratio 1.3 Assessment & Plan - Assessment and Plan (Free Text) Assessment: A/P: 88 y/o F with PMH of Sick Sinus Syndrome s/p Pacemaker, HTN, Hyperlipidemia , CKD Stage II, demetia and Alzheimer's Dementia admitted to [facility] for evaluation and treatment of Syncopal episode/dizziness. Questionable Syncopal episode/dizziness - CT head: no acute findings - Dizziness mostly orthostatic in nature probably secondary to volume depletion - F/u Trop x2 - F/u morning EKG - C/w NS 70mls/hr - F/u Carotid & Vertebr U/S - Admit for obs Hypertension - Chronic, Controlled - C/w home medications as ordered HLD - Chronic, controlled - Lipitor 10mg HS Dementia - Memantine 10mg PO BID - Aricept 10mg HS DVT PPX - Lovenox 40mg SC Case discussed and patient seen with Dr. Harp <Damon Harp D - Last Filed: 10/07/18 11:15> Results - Vital Signs Recent Vital Signs: Last Vital Signs Temp 98.3 F 10/07/18 07:41 Pulse 63 10/07/18 07:41 Resp 18 10/07/18 07:41 BP 170/71 H 10/07/18 07:41 Pulse Ox 93 L 10/07/18 07:41 - Labs Result Diagrams: 10/07/18 04:40 10/07/18 01:55 Labs: Laboratory Results - last 24 hr 10/06/18 10/06/18 10/06/18 16:54 17:40 18:20 WBC 13.2 H RBC 4.51 Hgb 13.1 Hct 39.9 MCV 88.5 MCH 29.1 MCHC 32.9 L RDW 13.7 Plt Count 212 MPV 8.7 Neut % (Auto) 84.1 H Lymph % (Auto) 7.4 L [place] % (Auto) 6.8 Eos % (Auto) 0.9 Baso % (Auto) 0.8 Neut # (Auto) 11.1 H Lymph # (Auto) 1.0 [place] # (Auto) 0.9 H Eos # (Auto) 0.1 Baso # (Auto) 0.1 Neutrophils % (Manual) 79 H Band Neutrophils % 2 Lymphocytes % (Manual) 9 L Monocytes % (Manual) 8 Eosinophils % (Manual) 1 Basophils % (Manual) 1 Toxic Granulation Present Platelet Estimate Normal Hypochromasia (manual) Slight Sodium 139 Potassium 3.8 Chloride 105 Carbon Dioxide 23 Anion Gap 15 BUN 24 H Creatinine 1.1 Est GFR ( Amer) 57 Est GFR (Non-Af Amer) 47 POC Glucose (mg/dL) 129 H Random Glucose 142 H Calcium 9.1 Phosphorus Magnesium Total Bilirubin 0.7 AST 24 ALT 28 Alkaline Phosphatase 64 Troponin I < 0.0120 Total Protein 7.2 Albumin 4.0 Globulin 3.2 Albumin/Globulin Ratio 1.3 10/06/18 10/07/18 10/07/18 18:20 01:55 04:40 WBC 10.9 H RBC 4.16 Hgb 12.4 Hct 37.1 MCV 89.1 MCH 29.8 MCHC 33.5 RDW 13.7 Plt Count 191 MPV 9.0 Neut % (Auto) 70.8 Lymph % (Auto) 16.6 L [place] % (Auto) 10.3 H Eos % (Auto) 2.1 Baso % (Auto) 0.2 Neut # (Auto) 7.7 H Lymph # (Auto) 1.8 [place] # (Auto) 1.1 H Eos # (Auto) 0.2 Baso # (Auto) 0.0 Neutrophils % (Manual) Band Neutrophils % Lymphocytes % (Manual) Monocytes % (Manual) Eosinophils % (Manual) Basophils % (Manual) Toxic Granulation Platelet Estimate Hypochromasia (manual) Sodium 139 139 Potassium 4.1 3.9 Chloride 104 109 H Carbon Dioxide 26 23 Anion Gap 13 11 BUN 25 H 23 H Creatinine 1.0 0.9 Est GFR ( Amer) > 60 > 60 Est GFR (Non-Af Amer) 52 59 POC Glucose (mg/dL) Random Glucose 151 H 124 H Calcium 9.0 8.9 Phosphorus 2.5 Magnesium 1.9 Total Bilirubin 0.6 AST 27 ALT 28 Alkaline Phosphatase 64 Troponin I < 0.0120 < 0.0120 Total Protein 6.9 Albumin 3.8 Globulin 3.0 Albumin/Globulin Ratio 1.3 10/07/18 09:30 WBC RBC Hgb Hct MCV MCH MCHC RDW Plt Count MPV Neut % (Auto) Lymph % (Auto) [place] % (Auto) Eos % (Auto) Baso % (Auto) Neut # (Auto) Lymph # (Auto) [place] # (Auto) Eos # (Auto) Baso # (Auto) Neutrophils % (Manual) Band Neutrophils % Lymphocytes % (Manual) Monocytes % (Manual) Eosinophils % (Manual) Basophils % (Manual) Toxic Granulation Platelet Estimate Hypochromasia (manual) Sodium Potassium Chloride Carbon Dioxide Anion Gap BUN Creatinine Est GFR ( Amer) Est GFR (Non-Af Amer) POC Glucose (mg/dL) Random Glucose Calcium Phosphorus Magnesium Total Bilirubin AST ALT Alkaline Phosphatase Troponin I < 0.0120 Total Protein Albumin Globulin Albumin/Globulin Ratio Attending/Attestation - Attestation I have personally seen and examined this patient.: Yes I have fully participated in the care of the patient.: Yes I have reviewed all pertinent clinical information: Yes Notes (Text): 10/07/18 11:14 Patient seen and examined with resident. Case discussed and agreed with assessment and plan of management
[2018-10-06 20:35] LABS: BANDS 2 % (0-2); BASOPHIL 1 % (0-2); EOSINOPHIL 1 % (0-7); HYPOCHROMIC SLIGHT; LYMPHOCYTE 9 % (20-50); MONOCYTE 8 % (0-10); NEUTROPHIL 79 % (42-75); PLATELET ESTIMATE NORMAL (NORMAL); TOTAL CELLS COUNTED 100; TOXIC GRANULATION PRESENT
--- NOTE | 2018-10-06 21:00 | ED PDOC ---
- Laboratory Results Result Diagrams: 10/06/18 18:20 10/07/18 01:55 Lab Results: Troponin I < 0.0120 ng/mL (0.00-0.120) 10/06/18 18:20 Total Bilirubin 0.6 mg/dl (0.2-1.3) 10/06/18 18:20 AST 27 U/L (14-36) 10/06/18 18:20 ALT 28 U/L (9-52) 10/06/18 18:20 Alkaline Phosphatase 64 U/L (38-126) 10/06/18 18:20 Total Protein 6.9 G/DL (6.3-8.2) 10/06/18 18:20 Albumin 3.8 g/dL (3.5-5.0) 10/06/18 18:20 Globulin 3.0 gm/dL (2.2-3.9) 10/06/18 18:20 Albumin/Globulin Ratio 1.3 (1.0-2.1) 10/06/18 18:20 - ECG O2 Sat by Pulse Oximetry: 97 (RA) Medical Decision Making Medical Decision Makin:00 Patient care endorsed to this provider from Dr. Abad pending imaging and reevaluation. 21:25 labs reviewed and there were no clinical abnormalities. Case is referred to Dr. Harp,the hospitalist. Diagnosis: Syncope Scribe Attestation: Documented by Carmencita Sotelo, acting as a scribe for Enrique Funk MD Provider Scribe Attestation: All medical record entries made by the Scribe were at my direction and personally dictated by me. I have reviewed the chart and agree that the record accurately reflects my personal performance of the history, physical exam, medical decision making, and the department course for this patient. I have also personally directed, reviewed, and agree with the discharge instructions and disposition Disposition - Clinical Impression Clinical Impression: Syncope - POA Present On Arrival: None - Disposition Disposition: Hospitalized as Observation Patient Disposition Time: 21:25 Condition: FAIR
[2018-10-06] MEDS ORDERED: Metoprolol Succinate 50 mg XL Tab PO SCH (22:00)
[2018-10-06] MEDS: Sodium Chloride 0.9% 1,000 ML IV SCH (22:42)
[2018-10-07 02:17] LABS: BLOOD UREA NITROGEN 23 mg/dl (7-17); CALCIUM 8.9 mg/dL (8.4-10.2); GFR NON-AFRICAN AMERICAN 59
[2018-10-07 05:29] LABS: BASO % 0.2 % (0.0-2.0); EOS # 0.2 K/uL (0.0-0.7); EOS % 2.1 % (0.0-4.0); HEMOGLOBIN 12.4 g/dL (12.0-16.0); LYMPH # 1.8 K/uL (1.0-4.3); LYMPH % 16.6 % (20.0-40.0); MEAN CELL VOLUME 89.1 fl (81.0-99.0); MEAN CORPUSCULAR HEMOGLOBIN 29.8 pg (27.0-31.0); MEAN CORPUSCULAR HGB CONC 33.5 g/dL (33.0-37.0); MONO # 1.1 K/uL (0.0-0.8); MONO % 10.3 % (0.0-10.0); NEUT # 7.7 K/uL (1.8-7.0); NEUT % 70.8 % (50.0-75.0); RBC 4.16 Mil/uL (3.80-5.20); RED CELL DISTRIBUTION WIDTH 13.7 % (11.5-14.5); WHITE BLOOD COUNT 10.9 K/uL (4.8-10.8)
--- NOTE | 2018-10-07 08:34 | CARD ---
APPROVED REPORT Date of service: 10/07/2018 EKG Measurement Heart [id number] <Conclusion> Sinus bradycardia with 1st degree AV block Nonspecific ST-T changes Abnormal ECG
--- NOTE | 2018-10-07 08:43 | CARD ---
APPROVED REPORT Date of service: 10/06/2018 EKG Measurement Heart [id number] <Conclusion> Sinus bradycardia with 1st degree AV block Nonspecific T wave abnormality Abnormal ECG
[2018-10-07] MEDS ORDERED: Pantoprazole 40 mg EC Tab PO SCH (09:00)
[2018-10-07] MEDS ORDERED: Enoxaparin 40 mg Syringe SC SCH (09:00)
--- NOTE | 2018-10-07 11:41 | US ---
Date of service: 10/06/2018 PROCEDURE: Duplex ultrasound of the carotid and vertebral arteries. HISTORY: syncope COMPARISON: None available. TECHNIQUE: Grayscale and duplex Doppler evaluation of the cervical carotid and vertebral arteries were performed. The common carotid, carotid bifurcations and cervical ICA and proximal ECA were evaluated. The vertebral arteries were evaluated for gross patency and direction. FINDINGS: RIGHT CAROTID ARTERIES: Common Carotid Artery: Heterogeneous plaque formation. Maximal flow velocity of 69.3 cm/s. Carotid Bifurcation: Intimal thickening is present Internal Carotid Artery:Heterogeneous plaque formation. This particularly prominent proximal right ICA. Maximal flow velocity of 54.8 cm/s. External Carotid Artery (proximal branches): Maximal flow velocity of 116.1 cm/s. ICA/CCA Ratio: 1.0 LEFT CAROTID ARTERIES: Common Carotid Artery: Extensive partially calcified plaque primarily in the distal common carotid. Maximal flow velocity of 61.2 cm/s. Carotid Bifurcation: Intimal thickening is present Internal Carotid Artery:Heterogeneous plaque formation. Maximal flow velocity of 106.4 cm/s. External Carotid Artery (proximal branches): Maximal flow velocity of 82.2 cm/s. ICA/CCA Ratio: 1.7 VERTEBRAL ARTERIES: Right Vertebral Artery: Patent. Antegrade flow. Left Vertebral Artery: Patent. Antegrade flow. OTHER FINDINGS: Atherosclerotic calcification present. IMPRESSION: Right ICA degree of stenosis: Less than 50% Left ICA degree of stenosis: Less than 50% No significant interval change compared to the prior examination(s). Reference Internal Carotid Artery (ICA) Peak Systolic Velocity (PSV) for above: 1. Less than 50% stenosis less than 125 cm/s peak systolic velocity 2. 50-69% stenosis 125-230cm/s peak systolic velocity 3. Greater than 70% but less than near occlusion greater than 230 cm/s peak systolic velocity
[2018-10-07 12:24] VITALS: TEMP 98.8
--- NOTE | 2018-10-07 13:05 | CP.PCM.PN ---
Subjective - Date & Time of Evaluation Date of Evaluation: 10/07/18 Time of Evaluation: 09:53 - Subjective Subjective: -Spoke with Dr. Fitzgerald this morning, and update him about current status of the patient. -Dr. Fitzgerald gave me the patient's tenant coordinator office number ([phone]). -Dr. Luna's office was called, on-call tenant coordinator was paged as per retail customer service representative, but no one has returned phone call as of yet. Recalled office and spoke to Sari. She states she will repage. Patient was seen and examined this morning at bedside. Patient has no c omplaints. Denies any fever, chills, dizziness, lightheadedness, chest pain or sob. Objective - Vital Signs/Intake and Output Vital Signs (last 24 hours): Temp Pulse Resp BP Pulse Ox 98.8 F 60 18 167/65 H 94 L 10/07/18 12:00 10/07/18 12:56 10/07/18 12:00 10/07/18 12:56 10/07/18 12:00 Intake and Output: 10/07/18 10/07/18 06:59 18:59 Intake Total 860 Balance 860 - Medications Medications: Current Medications Acetaminophen (Tylenol 325mg Tab) 650 mg PO Q6 PRN PRN Reason: Headache Amlodipine Besylate (Norvasc) 5 mg PO DAILY [facility] Last Admin: 10/07/18 12:56 Dose: 5 mg Aspirin (Ecotrin) 81 mg PO DAILY [facility] Last Admin: 10/07/18 08:45 Dose: 81 mg Atorvastatin Calcium (Lipitor) 10 mg PO HS [facility] Last Admin: 10/06/18 23:21 Dose: 10 mg Calcitriol (Rocaltrol) 0.25 mcg PO MWF [facility] Docusate Sodium (Colace) 100 mg PO BID PRN PRN Reason: Constipation Donepezil HCl (Aricept) 10 mg PO [facility] Last Admin: 10/06/18 23:22 Dose: 10 mg Enoxaparin Sodium (Lovenox) 40 mg SC DAILY [facility]; Protocol Last Admin: 10/07/18 08:44 Dose: 40 mg Home Med (Paricalcitol [Zemplar]) 2 mcg PO [place] [facility] Sodium Chloride (Sodium Chloride 0.9%) 1,000 mls @ 70 mls/hr IV .[id number] [facility] Stop: 10/07/18 20:37 Last Admin: 10/06/18 22:42 Dose: 70 mls/hr Memantine (Namenda) 10 mg PO BID [facility] Last Admin: 10/07/18 08:46 Dose: 10 mg Ondansetron HCl (Zofran Inj) 4 mg IVP Q6 PRN PRN Reason: Nausea/Vomiting Pantoprazole Sodium (Protonix Ec Tab) 40 mg PO DAILY [facility] Last Admin: 10/07/18 08:46 Dose: 40 mg Sevelamer Carbonate (Renvela) 800 mg PO BID [facility] Last Admin: 10/07/18 08:47 Dose: 800 mg - Labs Labs: 10/07/18 04:40 10/07/18 01:55 - Constitutional Appears: Non-toxic - Head Exam Head Exam: ATRAUMATIC, NORMAL INSPECTION - ENT Exam ENT Exam: Mucous Membranes Moist - Respiratory Exam Respiratory Exam: Clear to Ausculation Bilateral. absent: Respiratory Distress - Cardiovascular Exam Cardiovascular Exam: REGULAR RHYTHM, +S1, +S2 - GI/Abdominal Exam GI & Abdominal Exam: Soft, Normal Bowel Sounds. absent: Guarding, Rigid, Tenderness - Extremities Exam Extremities Exam: absent: Calf Tenderness - Neurological Exam Neurological Exam: Alert, Awake, Oriented x3 - Psychiatric Exam Psychiatric exam: Normal Mood - Skin Skin Exam: Dry Assessment and Plan - Assessment and Plan (Free Text) Assessment: 88 y/o F with PMH of Sick Sinus Syndrome s/p Pacemaker, HTN, Hyperlipidemia , CKD Stage II, demetia and Alzheimer's Dementia admitted to [facility] for evaluation and treatment of near syncopal episode. Near syncopal episode - CT head: no acute findings - troponin x 3 negative - EKG with sinus bradycardia rate of 52bpm with pacemaker spikes - C/w NS 70mls/hr - Carotid & Vertebr U/S right/left ICA showed less than 50% stenosis Hypertension (Chronic, Controlled - metoprolol discontinued bc of bradycardia -Norvasc 5mg PO QD added HLD - Chronic, controlled - Lipitor 10mg HS Dementia - Memantine 10mg PO BID - Aricept 10mg HS DVT PPX - Lovenox 40mg SC
--- NOTE | 2018-10-07 13:52 | CP.PCM.DIS ---
<Estella Ceja - Last Filed: 10/07/18 13:53> Provider - Provider Date of Admission: 10/06/18 19:34 Attending physician: Kinsey Ansari MD Time Spent in preparation of Discharge (in minutes): 40 Hospital Course - Lab Results Lab Results: Most Recent Lab Values WBC 10.9 K/uL (4.8-10.8) H 10/07/18 04:40 RBC 4.16 Mil/uL (3.80-5.20) 10/07/18 04:40 Hgb 12.4 g/dL (12.0-16.0) 10/07/18 04:40 Hct 37.1 % (34.0-47.0) 10/07/18 04:40 MCV 89.1 fl (81.0-99.0) 10/07/18 04:40 MCH 29.8 pg (27.0-31.0) 10/07/18 04:40 MCHC 33.5 g/dL (33.0-37.0) 10/07/18 04:40 RDW 13.7 % (11.5-14.5) 10/07/18 04:40 Plt Count 191 K/uL (130-400) 10/07/18 04:40 MPV 9.0 fl (7.2-11.7) 10/07/18 04:40 Neut % (Auto) 70.8 % (50.0-75.0) 10/07/18 04:40 Lymph % (Auto) 16.6 % (20.0-40.0) L 10/07/18 04:40 [place] % (Auto) 10.3 % (0.0-10.0) H 10/07/18 04:40 Eos % (Auto) 2.1 % (0.0-4.0) 10/07/18 04:40 Baso % (Auto) 0.2 % (0.0-2.0) 10/07/18 04:40 Neut # (Auto) 7.7 K/uL (1.8-7.0) H 10/07/18 04:40 Lymph # (Auto) 1.8 K/uL (1.0-4.3) 10/07/18 04:40 [place] # (Auto) 1.1 K/uL (0.0-0.8) H 10/07/18 04:40 Eos # (Auto) 0.2 K/uL (0.0-0.7) 10/07/18 04:40 Baso # (Auto) 0.0 K/uL (0.0-0.2) 10/07/18 04:40 Neutrophils % (Manual) 79 % (42-75) H 10/06/18 18:20 Band Neutrophils % 2 % (0-2) 10/06/18 18:20 Lymphocytes % (Manual) 9 % (20-50) L 10/06/18 18:20 Monocytes % (Manual) 8 % (0-10) 10/06/18 18:20 Eosinophils % (Manual) 1 % (0-7) 10/06/18 18:20 Basophils % (Manual) 1 % (0-2) 10/06/18 18:20 Toxic Granulation Present 10/06/18 18:20 Platelet Estimate Normal (NORMAL) 10/06/18 18:20 Hypochromasia (manual) Slight 10/06/18 18:20 Sodium 139 mmol/l (132-148) 10/07/18 01:55 Potassium 3.9 MMOL/L (3.6-5.0) 10/07/18 01:55 Chloride 109 mmol/L (98-107) H 10/07/18 01:55 Carbon Dioxide 23 mmol/L (22-30) 10/07/18 01:55 Anion Gap 11 (10-20) 10/07/18 01:55 BUN 23 mg/dl (7-17) H 10/07/18 01:55 Creatinine 0.9 mg/dl (0.7-1.2) 10/07/18 01:55 Est GFR ( Amer) > 60 10/07/18 01:55 Est GFR (Non-Af Amer) 59 10/07/18 01:55 POC Glucose (mg/dL) 129 mg/dL (65-110) H 10/06/18 16:54 Random Glucose 124 mg/dL (65-105) H 10/07/18 01:55 Calcium 8.9 mg/dL (8.4-10.2) 10/07/18 01:55 Phosphorus 2.5 mg/dl (2.5-4.5) 10/06/18 18:20 Magnesium 1.9 MG/DL (1.6-2.3) 10/06/18 18:20 Total Bilirubin 0.6 mg/dl (0.2-1.3) 10/06/18 18:20 AST 27 U/L (14-36) 10/06/18 18:20 ALT 28 U/L (9-52) 10/06/18 18:20 Alkaline Phosphatase 64 U/L (38-126) 10/06/18 18:20 Troponin I < 0.0120 ng/mL (0.00-0.120) 10/07/18 09:30 Total Protein 6.9 G/DL (6.3-8.2) 10/06/18 18:20 Albumin 3.8 g/dL (3.5-5.0) 10/06/18 18:20 Globulin 3.0 gm/dL (2.2-3.9) 10/06/18 18:20 Albumin/Globulin Ratio 1.3 (1.0-2.1) 10/06/18 18:20 - Hospital Course Hospital Course: 88 y/o F with PMH of Sick Sinus Syndrome s/p Pacemaker, HTN, Hyperlipidemia , CKD Stage II, demetia and Alzheimer's Dementia admitted to [facility] for evaluation and treatment of near syncopal episode. Patient was seen and examined this morning at bedside. Patient has no complaints. Denies any fever, chills, dizziness, lightheadedness, chest pain or sob. (Spoke with custom decorating consultant at the office; unable to obtain information about when pacemaker was last checked). Patient is hemodynamically stable, with head CT neg for acute pathology, carotid dopplers-right/left ICA showed less than 50% stenosis. Patient will be discharged with follow up with [facility]. Near syncopal episode (acute, resolved) Hypertension (chronic) - metoprolol decrease to 25mg PO HLD (chronic, controlled ) - Lipitor 10mg HS Dementia (chronic) - Memantine 10mg PO BID - Aricept 10mg HS Discharge Exam - Head Exam Head Exam: ATRAUMATIC, NORMAL INSPECTION - Eye Exam Eye Exam: EOMI - ENT Exam ENT Exam: Mucous Membranes Moist - Respiratory Exam Respiratory Exam: NORMAL BREATHING PATTERN - Cardiovascular Exam Cardiovascular Exam: Bradycardia - GI/Abdominal Exam GI & Abdominal Exam: Normal Bowel Sounds, Soft. absent: Guarding, Rebound, Rigid, Tenderness - Extremities Exam Extremities exam: normal inspection - Neurological Exam Neurological exam: Alert - Psychiatric Exam Psychiatric exam: Normal Mood - Skin Skin Exam: Dry, Intact Discharge Plan - Discharge Medications Prescriptions: Metoprolol Succinate XL [Toprol XL] 25 mg PO HS 30 Days #30 tab - Follow Up Plan Condition: FAIR Disposition: HOME/ ROUTINE Patient education suggested?: Yes <Damon Harp - Last Filed: 10/07/18 15:40> Provider - Provider Date of Admission: 10/06/18 19:34 Attending physician: Kinsey Ansari MD Hospital Course - Lab Results Lab Results: Most Recent Lab Values WBC 10.9 K/uL (4.8-10.8) H 10/07/18 04:40 RBC 4.16 Mil/uL (3.80-5.20) 10/07/18 04:40 Hgb 12.4 g/dL (12.0-16.0) 10/07/18 04:40 Hct 37.1 % (34.0-47.0) 10/07/18 04:40 MCV 89.1 fl (81.0-99.0) 10/07/18 04:40 MCH 29.8 pg (27.0-31.0) 10/07/18 04:40 MCHC 33.5 g/dL (33.0-37.0) 10/07/18 04:40 RDW 13.7 % (11.5-14.5) 10/07/18 04:40 Plt Count 191 K/uL (130-400) 10/07/18 04:40 MPV 9.0 fl (7.2-11.7) 10/07/18 04:40 Neut % (Auto) 70.8 % (50.0-75.0) 10/07/18 04:40 Lymph % (Auto) 16.6 % (20.0-40.0) L 10/07/18 04:40 [place] % (Auto) 10.3 % (0.0-10.0) H 10/07/18 04:40 Eos % (Auto) 2.1 % (0.0-4.0) 10/07/18 04:40 Baso % (Auto) 0.2 % (0.0-2.0) 10/07/18 04:40 Neut # (Auto) 7.7 K/uL (1.8-7.0) H 10/07/18 04:40 Lymph # (Auto) 1.8 K/uL (1.0-4.3) 10/07/18 04:40 [place] # (Auto) 1.1 K/uL (0.0-0.8) H 10/07/18 04:40 Eos # (Auto) 0.2 K/uL (0.0-0.7) 10/07/18 04:40 Baso # (Auto) 0.0 K/uL (0.0-0.2) 10/07/18 04:40 Neutrophils % (Manual) 79 % (42-75) H 10/06/18 18:20 Band Neutrophils % 2 % (0-2) 10/06/18 18:20 Lymphocytes % (Manual) 9 % (20-50) L 10/06/18 18:20 Monocytes % (Manual) 8 % (0-10) 10/06/18 18:20 Eosinophils % (Manual) 1 % (0-7) 10/06/18 18:20 Basophils % (Manual) 1 % (0-2) 10/06/18 18:20 Toxic Granulation Present 10/06/18 18:20 Platelet Estimate Normal (NORMAL) 10/06/18 18:20 Hypochromasia (manual) Slight 10/06/18 18:20 Sodium 139 mmol/l (132-148) 10/07/18 01:55 Potassium 3.9 MMOL/L (3.6-5.0) 10/07/18 01:55 Chloride 109 mmol/L (98-107) H 10/07/18 01:55 Carbon Dioxide 23 mmol/L (22-30) 10/07/18 01:55 Anion Gap 11 (10-20) 10/07/18 01:55 BUN 23 mg/dl (7-17) H 10/07/18 01:55 Creatinine 0.9 mg/dl (0.7-1.2) 10/07/18 01:55 Est GFR ( Amer) > 60 10/07/18 01:55 Est GFR (Non-Af Amer) 59 10/07/18 01:55 POC Glucose (mg/dL) 129 mg/dL (65-110) H 10/06/18 16:54 Random Glucose 124 mg/dL (65-105) H 10/07/18 01:55 Calcium 8.9 mg/dL (8.4-10.2) 10/07/18 01:55 Phosphorus 2.5 mg/dl (2.5-4.5) 10/06/18 18:20 Magnesium 1.9 MG/DL (1.6-2.3) 10/06/18 18:20 Total Bilirubin 0.6 mg/dl (0.2-1.3) 10/06/18 18:20 AST 27 U/L (14-36) 10/06/18 18:20 ALT 28 U/L (9-52) 10/06/18 18:20 Alkaline Phosphatase 64 U/L (38-126) 10/06/18 18:20 Troponin I < 0.0120 ng/mL (0.00-0.120) 10/07/18 09:30 Total Protein 6.9 G/DL (6.3-8.2) 10/06/18 18:20 Albumin 3.8 g/dL (3.5-5.0) 10/06/18 18:20 Globulin 3.0 gm/dL (2.2-3.9) 10/06/18 18:20 Albumin/Globulin Ratio 1.3 (1.0-2.1) 10/06/18 18:20 Attending/Attestation - Attestation I have personally seen and examined this patient.: Yes I have fully participated in the care of the patient.: Yes I have reviewed all pertinent clinical information, including history, physical exam and plan: Yes Notes (Text): 10/07/18 15:40 Patient seen and examined with resident. Case discussed and agreed with assessment. Patient discharged in stable condition.
[2018-10-07] MEDS: Sodium Chloride 0.9% 1,000 ML IV SCH (14:32)
[2018-10-07 16:21] LABS: SQUAMOUS EPITHIAL < 1 /hpf (0-5); URINE BACTERIA OCC (<OCC); URINE BILIRUBIN NEGATIVE (NEGATIVE); URINE CLARITY SLIGHTY-CLOUDY (Clear); URINE COLOR YELLOW (YELLOW); URINE GLUCOSE (UA) NEG (NEGATIVE); URINE LEUKOCYTE ESTERASE NEG Leu/uL (Negative); URINE PROTEIN NEGATIVE (NEGATIVE); URINE UROBILINOGEN 0.2-1.0 mg/dL (0.2-1.0)
[2018-10-07 16:31] LABS: URINE BLOOD TRACE (NEGATIVE)
[2018-10-07 16:34] VITALS: BP 173/67; PULSE 74; RESP 16; O2SAT 97
[2018-10-07] MEDS ORDERED: PARICALCITOL 2 MCG PO SCH (20:03)
[2018-10-08] MEDS ORDERED: Metoprolol Succinate 25 mg XL Tab PO SCH (22:00)
== END 2018-10-07 18:00 | disposition home or self-care (01) ==
LOC: H.ER 16:41 → H.ERHOLD 19:34 → H.TEL 22:55
PROVIDERS: ADMIT Internal Medicine; ATTEND Internal Medicine
DX: R55 Syncope and collapse (principal); E78.00 Pure hypercholesterolemia, unspecified; E78.5 Hyperlipidemia, unspecified; E86.9 Volume depletion, unspecified; F02.80 Dementia in other diseases classified elsewhere, unspecified severity, without behavioral disturbance, psychotic disturbance, mood disturbance, and anxiety; G30.9 Alzheimer's disease, unspecified; I12.9 Hypertensive chronic kidney disease with stage 1 through stage 4 chronic kidney disease, or unspecified chronic kidney disease; M81.0 Age-related osteoporosis without current pathological fracture; N18.2 Chronic kidney disease, stage 2 (mild); Z79.82 Long term (current) use of aspirin; Z79.899 Other long term (current) drug therapy; Z87.442 Personal history of urinary calculi; Z95.0 Presence of cardiac pacemaker; R00.1 Bradycardia, unspecified
CPT/HCPCS: 36415; 70450; 71045; 80048; 80053; 81003; 82948; 83735; 84100; 84484; 85025; 93005; 93880; 97116; 97161; 97530; 99285; G0378; G8978; G8979; J1650; J7030